=== PATIENT | male | born 1975 | race Caucasian/White ===

== ENCOUNTER 2016-09-19 09:57 | Emergency (ER) | payer SELFPAY ==
[~2016-09-19 09:57] MED LIST: ALEVE220 M1 PO; AUGMENTIN500 MG PO; BACTRIM DS TAB1 EAC2 PO; BACTROBAN; CLEOCIN HCL300 MG; CYMBALTA20 MG PO; EXCEDRIN MIGRAI1 TAB PO; FLEXERIL10 MG PO; FLOXIN10 ML OT; HURRICAINE; IBUPROFEN800 MG PO; LORAZEPAM; METHADONE HCL10 MG PO; METHADONE10 MG/5 ML PO; METHADONE5 MG PO; MULTIVITAMIN1 TAB PO; NAPROSYN250 MG PO; NO HOME MEDICATION XX; NORCO 5/325 TAB1 TAB PO; NORCO 7.5/325 T1 TAB PO; NORFLEX100 MG PO; OMNICEF300 MG PO; PEPCID; PERCOCET 10 MG/1 TA1 PO; PERCOCET 5MG/AP1 TA3 PO; PREDNISONE PO; PREDNISONE10 MG PO; PREDNISONE20 M1 PO; TRAMADOL HCL50 M2 PO; VICODIN 5/500 T1 TAB PO; ZANAFLEX PO; ZOLOFT50 MG; [UNRECOGNIZED DRUG - OTHER]
[2016-09-19 11:24] LABS: BASO % 0.2 % (0-2); EOS % 1.2 % (0-7); EOSINOPHIL ABSOLUTE COUNT 0.1 tho/cmm (0.0-0.7); HCT-HEMATOCRIT 41.3 % (36.0-53.5); HGB-HEMOGLOBIN 13.8 gm/dl (13.5-17.0); IMMATURE GRANULOCYTES ABSOLUTE 0.01 tho/cmm (0-0.03); IMMATURE GRANULOCYTES PERCENT 0.1 % (0-0.3); LYMPH % 18.5 % (20-45); LYMPH ABSOLUTE COUNT 1.7 tho/cmm (0.8-4.5); MCH (MEAN CORPUSCULAR HGB) 30.1 pg (28.0-32.0); MCHC MEAN CORPUSCULAR HGB CONC 33.4 % (32.0-36.0); MEAN PLATELET VOLUME 9.7 cmc (9.4-12.4); MONO % 8.8 % (0-12); MONOCYTE ABSOLUTE COUNT 0.8 tho/cmm (0.0-1.2); NEUTROPHIL ABSOLUTE COUNT 6.6 tho/cmm (1.6-8.0); NEUTROPHIL-AUTOMATED 6.6 tho/cmm (1.6-8.0); NEUTROPHILS % 71.2 % (40-80); PLATELET COUNT 232 tho/cmm (150-450); RED BLOOD COUNT 4.59 mil/cmm (4.40-5.70); RED CELL DISTRIBUTION WIDTH 13.2 % (12.4-16.4); WHITE BLOOD COUNT 9.2 tho/cmm (4.0-10.0)
[2016-09-19 11:32] LABS: ANION GAP 11 mmol/L (0-20); BLOOD UREA NITROGEN 17 mg/dl (6-24); C-REACTIVE PROTEIN 4.2 mg/dl (0-0.9); CALCIUM 8.5 mg/dl (8.5-10.5); CARBON DIOXIDE-VENOUS 27 mmol/L (22-32); CHLORIDE 106 mmol/l (96-110); CREATININE 1.08 mg/dl (0.60-1.30); GLUCOSE 91 mg/dL (70-110); POTASSIUM 3.8 mmol/L (3.7-5.1); SODIUM 140 mmol/L (135-145); eGFR VALUE FOR BLACK >90 mL/Min
[2016-09-19 12:00] LABS: ESR-ERYTHROCYTE SED RATE 18 mm/hr (0-15)
[2016-09-19] MEDS ORDERED: BACTRIM DS TAB1 EAC2 PO (12:31)
[2016-09-19] MEDS ORDERED: KEFLEX500 M4 PO (12:31)
== END 2016-09-19 12:40 ==
LOC: EDMED 09:57
PROVIDERS: Emergency Medicine
DX: S61.012A Laceration without foreign body of left thumb without damage to nail, initial encounter (principal); L03.012 Cellulitis of left finger; W26.0XXA Contact with knife, initial encounter; Y92.009 Unspecified place in unspecified non-institutional (private) residence as the place of occurrence of the external cause
CPT/HCPCS: J0690